=== PATIENT | male | born 1960 | race Caucasian/White ===

== ENCOUNTER 2017-03-11 12:18 | Emergency (ER) | payer OTHER ==
[~2017-03-11] VITALS: Ht 182.8 cm; Wt 78.0 kg
[~2017-03-11 12:18] MED LIST: AUGMENTIN 500 M1 TAB PO; BACTRIM DS 8001 TA1 PO; COMBIVENT1 ARO IH; KEFLEX500 M1 PO; MEDROL DOSEPAK4 MG PO; VICODIN 5/500 505 MG PO; VOLTAREN50 M1 PO; ZITHROMAX Z PA250 MG PO; [UNRECOGNIZED DRUG - REMARK]
[2017-03-11] MEDS ORDERED: Peridex 473 ML473 ML PO (13:04)
[2017-03-11] MEDS ORDERED: AUGMENTIN 875875 MG PO (13:04)
[2017-03-11] MEDS ORDERED: Motrin,Rufen800 MG PO (13:04)
== END 2017-03-11 13:33 | disposition home or self-care (01) ==
LOC: ED 12:18
DX: K04.7 Periapical abscess without sinus (principal); F17.200 Nicotine dependence, unspecified, uncomplicated